=== PATIENT | female | born 1950 | race Caucasian/White ===

== ENCOUNTER → 2017-10-16 | Outpatient (CLI) | payer MEDICARE, OTHER ==
[~2017-10-16] MED LIST: ASPIR 8181 MG PO; ATORVASTATIN CA40 MG PO; CIPRO500 M1 PO; ESTRADIOL 1 MG T1 M1 PO; FISH OIL 1,001000 M2 PO; FLAGYL500 MG PO; FOLIC ACID0.8 M1 PO; METFORMIN HCL500 MG PO; NORCO 5-325 TA1 EAC1 PO; PHENERGAN 25 MG25 MG PO; PHENERGAN25 M1 RC; POTASSIUM20 PO; PRINIVIL20 MG PO; SERTRALINE HCL50 MG PO; TRIAMCINOLONE A80 G2 TOP; ZOFRAN ODT4 MG PO
== END ==
LOC: M.RAD 13:43
DX: Z12.31 Encounter for screening mammogram for malignant neoplasm of breast (principal)

== ENCOUNTER 2018-08-30 07:18 | Emergency (ER) | payer MEDICARE, OTHER ==
[~2018-08-30] VITALS: Ht 162.6 cm; Wt 65.8 kg
[2018-08-30 07:42] LABS: URINE BILIRUBIN NEGATIVE (Negative); URINE BLOOD 3+ (Negative); URINE CLARITY CLEAR; URINE COLOR YELLOW; URINE GLUCOSE-RANDOM NEGATIVE (Negative); URINE KETONES NEGATIVE (Negative); URINE LEUKOCYTES-REFLEX NEGATIVE (Negative); URINE NITRITE-REFLEX NEGATIVE (Negative); URINE PROTEIN NEGATIVE (Negative); URINE UROBILINOGEN 0.2 E.U./dl (0.2-1.0)
[2018-08-30 07:56] LABS: BACTERIA-REFLEX 1-9 Few /HPF (None Seen); CASTS None Seen /LPF (None Seen); CRYSTALS None Seen /LPF (None Seen); MUCUS 0-3 Light strn/LPF (None Seen); SQUAMOUS 0-3 Few /LPF (0-3); URINE WBC-REFLEX 0-5 Rare /HPF (0-5)
[2018-08-30 07:56] LABS: ABSOLUTE EOSINOPHILS 0.1 thou/uL (0.0-0.7); ABSOLUTE LYMPHOCYTES 0.9 thou/uL (0.8-5.3); ABSOLUTE MONOCYTES 0.2 thou/uL (0.0-1.2); ABSOLUTE NEUTROPHILS 3.2 thou/uL (1.6-8.1); BASOPHILS 0.7 %; EOSINOPHILS 2.2 %; HEMATOCRIT 35.3 % (37.0-47.0); HEMOGLOBIN 12.5 gm/dL (12.0-15.0); LYMPHOCYTES 19.5 %; MCH 32.5 pg (26.0-34.0); MCHC 35.3 g/dL (28.0-37.0); MCV 92.2 fL (80.0-100.0); MONOCYTES 4.7 %; NUCLEATED RBCS 0 /100WBC; PLATELET COUNT* 117 thou/uL (150-400); POLYS 72.9 %; RBC 3.83 mil/uL (4.20-5.00); RDW-CV 13.7 % (10.5-14.5); WBC 4.4 thou/uL (4.0-11.0)
[2018-08-30 08:04] LABS: ALBUMIN 3.7 g/dL (3.4-5.0); CALCIUM 8.6 mg/dL (8.5-10.1); CREATININE 0.9 mg/dL (0.6-1.3); TOTAL BILIRUBIN 0.5 mg/dL (<0.1-1.0); TOTAL PROTEIN 7.2 g/dL (6.4-8.2)
[2018-08-30 08:06] LABS: POTASSIUM 2.9 mmol/L (3.5-5.1)
[2018-08-30] MEDS ORDERED: ZOFRAN ODT4 MG PO (10:55)
[2018-08-30] MEDS ORDERED: FLOMAX0.4 MG PO (10:55)
[2018-08-30] MEDS ORDERED: NORCO 5-325 TA1 EACH PO (10:55)
[2018-08-30 11:05] VITALS: BP 117/53
== END 2018-08-30 11:06 | disposition home or self-care (01) ==
LOC: M.ERS 07:18
PROVIDERS: Personal Emergency Response Attendant
DX: N20.1 Calculus of ureter (principal); N23 Unspecified renal colic; Z87.442 Personal history of urinary calculi; E11.9 Type 2 diabetes mellitus without complications; I10 Essential (primary) hypertension; Z90.710 Acquired absence of both cervix and uterus